=== PATIENT | female | born 1995 | race Caucasian/White ===

== ENCOUNTER 2020-03-06 15:42 | Emergency (ER) | payer BC ==
[~2020-03-06] VITALS: Ht 160 cm; Wt 135.4 kg
[2020-03-06 16:34] VITALS: BP 113/75
[2020-03-06] MEDS ORDERED: KETOROLAC 15 MG/ML VIAL. IVP ONE (16:45)
[2020-03-06] MEDS ORDERED: PROCHLORPERAZINE 10 MG/2 ML VIAL. IV ONE (16:45)
[2020-03-06] MEDS ORDERED: diphenhydrAMINE 50 MG/ML VIAL IVP ONE (16:45)
--- NOTE | 2020-03-06 16:48 | PHYS DOC ---
Past History Additional Past Medical Histor: migraines Drug Use: Marijuana General Adult EDM: Chief Complaint: HEADACHE HPI: HPI: Patient is a 24-year-old female who presents with a 1 day history of headache. Patient has a long history of migraines and this feels similar but more intense than her usual migraines. Pain is located on the right side primarily the right frontal to the right posterior scalp. Pain is worse with light. Patient had one episode of nausea and vomiting. Patient denies any fevers, cough or shortness of breath. Patient has any focal weakness or numbness. Pain is currently 7 out of 10 and throbbing in nature. Pain was gradual in onset Review of Systems: Review of Systems: Constitutional: Denies fever or chills Eyes: Denies change in visual acuity HENT: Denies nasal congestion or sore throat Respiratory: Denies cough or shortness of breath Cardiovascular: Denies chest pain or edema GI: Denies abdominal pain, nausea, vomiting, bloody stools or diarrhea : Denies dysuria Musculoskeletal: Denies back pain or joint pain Integument: Denies rash Neurologic: Denies headache, focal weakness or sensory changes Endocrine: Denies polyuria or polydipsia Lymphatic: Denies swollen glands Psychiatric: Denies depression or anxiety Physical Exam: PE: Constitutional: Well developed, well nourished, no acute distress, non-toxic appearance. [] HENT: Normocephalic, atraumatic, bilateral external ears normal, no trismus, nose normal. [] Eyes: PERRLA, EOMI, conjunctiva normal, no discharge. [] Neck: Normal range of motion, no tenderness, supple, no stridor. [] Cardiovascular:Heart rate regular rhythm, peripheral pulses are intact cap refill is brisk Lungs & Thorax: Bilateral breath sounds clear to auscultation [] Abdomen: Bowel sounds normal, soft, no tenderness, no masses, no pulsatile masses. [] Skin: Warm, dry, no erythema, no rash. [] Back: No tenderness, no CVA tenderness. [] Extremities: No tenderness, no cyanosis, no clubbing, ROM intact, no edema. [] Neurologic: Alert and oriented X 3, normal motor function, normal sensory function, no focal deficits noted. [] Psychologic: Affect normal, judgement normal, mood normal. [] Current Patient Data: Vital Signs: Vital Signs Date Time Temp Pulse Resp B/P (MAP) Pulse Ox O2 Delivery O2 Flow Rate FiO2 03/06/20 16:34 97.9 73 16 113/75 (88) 99 Room Air EKG: EKG: [] Radiology/Procedures: Radiology/Procedures: [] Heart Score: Risk Factors: Risk Factors: DM, Current or recent (<one month) smoker, HTN, HLP, family history of CAD, obesity. Risk Scores: Score 0 - 3: 2.5% MACE over next 6 weeks - Discharge Home Score 4 - 6: 20.3% MACE over next 6 weeks - Admit for Clinical Observation Score 7 - 10: 72.7% MACE over next 6 weeks - Early Invasive Strategies Course & Med Decision Making: Course & Med Decision Making Pertinent Labs and Imaging studies reviewed. (See chart for details) [] Patient reassessed at 5:38 PM and headache is gone. 26-year-old female presents with headache that is similar to her prior migraines. Patient is neurologically intact and has no meningeal signs. Doubt meningitis or subarachnoid hemorrhage. Patient stable for discharge. Patient given dose of Decadron and a prescription for Compazine for home. Patient is referral to neurology. Deborah Disclaimer: Dragon Disclaimer: This electronic medical record was generated, in whole or in part, using a voice recognition dictation system. Departure Departure: Impression: Primary Impression: Headache Disposition: ADMITTED INPT THIS HOSP Condition: LEFT WITHOUT BEING SEEN Referrals: [facility] (PCP) CARRIE BARNETT MD 2-3 days Patient Instructions: General Headache Without Cause Additional Instructions: EMERGENCY DEPARTMENT GENERAL DISCHARGE INSTRUCTIONS THANK YOU for coming to [facility] Emergency Department (ED) today and trusting us with your care. We trust that you had a positive experience in our Emergency Department. If you wish to speak to the department Management you can contact the emergency department at YOUR FOLLOW UP INSTRUCTIONS ARE FOLLOWS: Do you have a private doctor? If you do not have a private doctor, please ask fo r a resource list of physicians or clinics that may be able to assist you with follow up care. The Emergency Physician has interpreted your x-rays. The X-ray specialist will also review them. If there is a change in the findings you will be notified in 48 hours when at all possible. A lab test or lab culture may have been done, your results will be reviewed and you will be notified if you need a change in treatment. ADDITIONAL INSTRUCTIONS AND INFORMATION Your care today has been supervised by a physician who is specially trained in emergency care. Many problems require more than one evaluation for a complete diagnosis and treatment. We recommend that you schedule your follow up appointment as recommended to ensure complete treatment of your illness or injury. If you are unable to obtain follow up care and continue to have a problem, or if your condition worsens we recommend that you return to the ED. We are not able to safely determine your condition over the phone nor are we able to give sound medical advice over the phone. For these safety reasons, if you call for medical advice we will ask you to come to the ED for further evaluation If you have any questions regarding these discharge instructions please call the ED at . SAFETY INFORMATION In the interest of safety, wellness, and injury prevention; we encourage you to wear your seatbelt, if you smoke; quit smoking, and we encourage your family to use protective helmet for bicycling and other sporting events that present an increased risk for head injury. IF YOUR SYMPTOMS WORSEN OR NEW SYMPTOMS DEVELOP, OR YOU HAVE CONCERNS ABOUT YOUR CONDITION; OR IF YOUR CONDITION WORSENS WHILE YOU ARE WAITING FOR YOUR FOLLOW UP APPOINTMENT; EITHER CONTACT YOUR PRIMARY CARE DOCTOR, THE PHYSICIAN WHOSE NAME AND NUMBER YOU WERE GIVEN, OR RETURN TO THE ED IMMEDIATELY. Scripts Prochlorperazine Maleate (Compazine) 10 Mg Tablet 1 TAB PO Q6HRS for headache/nausea for 7 Days, #28 TAB 0 Refills Prov: DORYS JOHNSON MD 03/06/20 DORYS JOHNSON MD Mar 06, 2020 16:47
[2020-03-06] MEDS ORDERED: PROC10TA57 PO (17:43)
[2020-03-06] MEDS ORDERED: DEXAMETHASONE SOD PHOS 10 MG/ML VIAL. IV ONE (17:43)
== END 2020-03-06 17:59 | disposition admitted as inpatient to this hospital (09) ==
LOC: ER 15:42
DX: G43.909 Migraine, unspecified, not intractable, without status migrainosus (principal); R11.2 Nausea with vomiting, unspecified
CPT/HCPCS: 96374; 96375; 99284; J0780; J1100; J1200; J1885

== ENCOUNTER 2020-08-28 11:08 | Emergency (ER) | payer BC ==
[~2020-08-28] VITALS: Ht 160 cm; Wt 139.5 kg
[~2020-08-28 11:08] MED LIST: PROC10TA57 PO
[2020-08-28] MEDS ORDERED: IV NORMAL SALINE 1,000ML 1,000 ML IV ONE (11:30)
[2020-08-28] MEDS ORDERED: ONDANSETRON PF 4 MG/2 ML VIAL. IVP ONE (11:30)
[2020-08-28] MEDS ORDERED: KETOROLAC 15 MG/ML VIAL. IVP ONE (11:30)
[2020-08-28 12:09] LABS: BASO % 1 % (0-3); EOS # 0.1 x10^3/uL (0.0-0.7); EOS % 2 % (0-3); HEMATOCRIT 39.2 % (36.0-47.0); HEMOGLOBIN 12.9 g/dL (12.0-15.5); LYMPH # 1.8 x10^3/uL (1.0-4.8); LYMPH % 36 % (24-48); MEAN CORPUSCULAR HEMOGLOBIN 28 pg (25-35); MEAN CORPUSCULAR HGB CONC 33 g/dL (31-37); MEAN CORPUSCULAR VOLUME 84 fL (79-100); MONO # 0.4 x10^3/uL (0.0-1.1); MONO % 8 % (0-9); NEUT # 2.8 x10^3uL (1.8-7.7); NEUT % 54 % (31-73); PLATELET COUNT 240 x10^3/uL (140-400); RED BLOOD COUNT 4.66 x10^6/uL (3.50-5.40); RED CELL DISTRIBUTION WIDTH 13.2 % (11.5-14.5); WHITE BLOOD COUNT 5.2 x10^3/uL (4.0-11.0)
--- NOTE | 2020-08-28 12:13 | RAD ---
INDICATION: Reason: dizziness/headache / Spl. Instructions: / History: COMPARISON: None. TECHNIQUE: Axial CT images obtained through the head without intravenous contrast. One or more of the following individualized dose reduction techniques were utilized for this examinat ion: 1. Automated exposure control; 2. Adjustment of the mA and/or kV according to patient size; 3 . Use of iterative reconstruction technique. FINDINGS: No intracranial hemorrhage. No midline shift. Basal cisterns patent. Ventricles and sulci are unremarkable. No acute osseous abnormality. Orbits and paranasal sinuses unremarkable. IMPRESSION: * No acute intracranial hemorrhage. Electronically signed by: Jitendra Muniz MD (08/28/2020 12:11 PM) [id number]
[2020-08-28 12:27] LABS: BILIRUBIN,URINE NEG (NEG); CALCIUM 9.1 mg/dL (8.5-10.1); CLARITY,URINE CLEAR; COLOR,URINE YELLOW; CREATININE 0.5 mg/dL (0.6-1.0); GLUCOSE,URINE NEG (NEG); NITRITE,URINE NEG (NEG); UROBILINOGEN,URINE 0.2 mg/dL (0.2 mg/dL)
[2020-08-28 12:29] LABS: BACTERIA,URINE 0 /HPF (0-FEW); RBC,URINE 0 /HPF (0-2); SQUAMOUS EPITHELIAL CELL,UR OCC /LPF; WBC,URINE 0 /HPF (0-4)
[2020-08-28 12:34] LABS: ALBUMIN 3.8 g/dL (3.4-5.0); ALBUMIN/GLOBULIN RATIO 1.2 (1.0-1.7); MAGNESIUM 2.2 mg/dL (1.8-2.4); TOTAL BILIRUBIN 0.3 mg/dL (0.2-1.0)
--- NOTE | 2020-08-28 12:41 | PHYS DOC ---
Past History Past Medical History: No Pertinent History, Migraines Additional Past Medical Histor: migraines Past Surgical History: , Tonsillectomy Alcohol Use: None Drug Use: Marijuana General Adult EDM: Chief Complaint: DIZZY/LIGHT HEADED HPI: HPI: Patient is a [age] year old [sex] who presents with [] Review of Systems: Review of Systems: Constitutional: Denies fever or chills Eyes: Denies redness or eye pain HENT: Denies nasal congestion or sore throat Respiratory: Denies cough or shortness of breath Cardiovascular: Denies chest pain or palpitations GI: Denies abdominal pain, nausea, or vomiting : Denies dysuria or hematuria Musculoskeletal: Denies back pain or joint pain Integument: Denies rash or skin lesions Neurologic: Denies headache, focal weakness or sensory changes Complete systems were reviewed and found to be within normal limits, except as documented in this note. Current Medications: Current Meds: Current Medications Medications (Trade) Dose Ordered Sig/Arin Start Time Stop Time Status Last Admin Dose Admin Ketorolac Tromethamine (Toradol 15mg Vial) 15 mg 1X ONCE 08/28/20 11:30 08/28/20 11:31 DC 08/28/20 11:50 15 MG Ondansetron HCl (Zofran) 4 mg 1X ONCE 08/28/20 11:30 08/28/20 11:31 DC 08/28/20 11:51 4 MG Sodium Chloride 1,000 ml @ 1,000 mls/hr 1X ONCE 08/28/20 11:30 08/28/20 12:29 DC 08/28/20 11:51 1,000 MLS/HR Allergies: Allergies: Allergies Coded Allergies Type Severity Reaction Last Updated Verified No Known Drug Allergies 03/06/20 No Physical Exam: PE: Constitutional: Well developed, well nourished, no acute distress, non-toxic appearance HENT: Normocephalic, atraumatic Eyes: PERRL, EOMI, conjunctiva normal, no discharge Neck: Normal range of motion, no tenderness, supple Lungs & Thorax: No respiratory distress, equal chest rise and fall Abdomen: Soft, no tenderness Skin: Warm, dry, no erythema, no rash Back: No tenderness, no CVA tenderness Extremities: No tenderness, ROM intact, no edema Neurologic: Alert and oriented X 3, normal motor function, normal sensory function, no focal deficits noted Psychologic: Affect normal, judgment normal Current Patient Data: Labs: Laboratory Tests Test 08/28/20 11:48 White Blood Count 5.2 x10^3/uL (4.0-11.0) Red Blood Count 4.66 x10^6/uL (3.50-5.40) Hemoglobin 12.9 g/dL (12.0-15.5) Hematocrit 39.2 % (36.0-47.0) Mean Corpuscular Volume 84 fL (79-100) Mean Corpuscular Hemoglobin 28 pg (25-35) Mean Corpuscular Hemoglobin Concent 33 g/dL (31-37) Red Cell Distribution Width 13.2 % (11.5-14.5) Platelet Count 240 x10^3/uL (140-400) Neutrophils (%) (Auto) 54 % (31-73) Lymphocytes (%) (Auto) 36 % (24-48) Monocytes (%) (Auto) 8 % (0-9) Eosinophils (%) (Auto) 2 % (0-3) Basophils (%) (Auto) 1 % (0-3) Neutrophils # (Auto) 2.8 x10^3uL (1.8-7.7) Lymphocytes # (Auto) 1.8 x10^3/uL (1.0-4.8) Monocytes # (Auto) 0.4 x10^3/uL (0.0-1.1) Eosinophils # (Auto) 0.1 x10^3/uL (0.0-0.7) Basophils # (Auto) 0.0 x10^3/uL (0.0-0.2) Urine Collection Type Unknown Urine Color Yellow Urine Clarity Clear Urine pH 7.5 Urine Specific [place] 1.020 Urine Protein Neg (NEG-TRACE) Urine Glucose (UA) Neg mg/dL (NEG) Urine Ketones (Stick) Neg mg/dL (NEG) Urine Blood Neg (NEG) Urine Nitrite Neg (NEG) Urine Bilirubin Neg (NEG) Urine Urobilinogen Dipstick 0.2 mg/dL (0.2 mg/dL) Urine Leukocyte Esterase Neg (NEG) Urine RBC 0 /HPF (0-2) Urine WBC 0 /HPF (0-4) Urine Squamous Epithelial Cells Occ /LPF Urine Bacteria 0 /HPF (0-FEW) Sodium Level 140 mmol/L (136-145) Potassium Level 5.5 mmol/L (3.5-5.1) H Chloride Level 104 mmol/L (98-107) Carbon Dioxide Level 25 mmol/L (21-32) Anion Gap 11 (6-14) Blood Urea Nitrogen 12 mg/dL (7-20) Creatinine 0.5 mg/dL (0.6-1.0) L Estimated GFR (Cockcroft-Gault) 148.0 BUN/Creatinine Ratio 24 (6-20) H Glucose Level 94 mg/dL (70-99) Calcium Level 9.1 mg/dL (8.5-10.1) Magnesium Level 2.2 mg/dL (1.8-2.4) Total Bilirubin 0.3 mg/dL (0.2-1.0) Aspartate Amino Transferase (AST) 29 U/L (15-37) Alanine Aminotransferase (ALT) 33 U/L (14-59) Alkaline Phosphatase 56 U/L (46-116) Troponin I Quantitative < 0.017 ng/mL (0-0.055) Total Protein 7.0 g/dL (6.4-8.2) Albumin 3.8 g/dL (3.4-5.0) Albumin/Globulin Ratio 1.2 (1.0-1.7) Vital Signs: Vital Signs Date Time Temp Pulse Resp B/P (MAP) Pulse Ox O2 Delivery O2 Flow Rate FiO2 08/28/20 12:30 68 16 136/77 (96) Room Air 08/28/20 11:22 97.9 98 EKG: EKG: @1134 NSR at 69bpm, NO ST elevation, QRS 88ms, QT/QTc 408/439ms, t wave inve rsion III Radiology/Procedures: Radiology/Procedures: PROCEDURE: CT HEAD WO CONTRAST INDICATION: Reason: dizziness/headache / Spl. Instructions: / History: COMPARISON: None. TECHNIQUE: Axial CT images obtained through the head without intravenous contrast. One or more of the following individualized dose reduction techniques were utilized for this examination: 1. Automated exposure control; 2. Adjustment of the mA and/or kV according to patient size; 3. Use of iterative reconstruction technique. FINDINGS: No intracranial hemorrhage. No midline shift. Basal cisterns patent. Ventricles and sulci are unremarkable. No acute osseous abnormality. Orbits and paranasal sinuses unremarkable. IMPRESSION: * No acute intracranial hemorrhage. Electronically signed by: Jitendra Muniz MD (08/28/2020 12:11 PM) DESKTOP- [id number] Heart Score: C/O Chest Pain: N/A Course & Med Decision Making: Course & Med Decision Making Pertinent Labs and Imaging studies reviewed. (See chart for details) Patient stable for discharge with outpatient follow-up with PCP. Discussed findings and plan with patient, who acknowledges understanding and agreement. Dragon Disclaimer: Dragon Disclaimer: This electronic medical record was generated, in whole or in part, using a voice recognition dictation system. Departure Departure: Impression: Primary Impression: Near syncope Disposition: 01 HOME / SELF CARE / HOMELESS Condition: STABLE Referrals: EV OBRIEN (PCP) Patient Instructions: Near-Syncope, [id number], Recurrent Migraine Headache, [id number] Additional Instructions: Increase fluid hydration. Take medication for headaches as directed. Follow with your previously scheduled appointment to see neurology. NANCY BARNEY DO August 28, 2020 12:41
[2020-08-28 13:30] VITALS: BP 137/65
--- NOTE | 2020-08-28 13:54 | EKG ---
[address] [address] Test Date: 2020-08-28 Test Time: 11:34:05 Pat Name: CHICO SORENSEN Department: Room: Gender: F Guest Service Agent: MELVIN : 1995 Requested By: NANCY BARNEY Order Number: [id number] Reading MD: Measurements Intervals [place] Rate: 69 P: 36 MS: 164 QRS: -23 QRSD: 88 T: -4 QT: 408 QTc: 439 Interpretive Statements SINUS RHYTHM LEFTWARD AXIS R-S TRANSITION ZONE IN V LEADS DISPLACED TO THE LEFT T ABNORMALITY IN INFERIOR LEADS ABNORMAL ECG RI6.02 No previous ECG available for comparison
[2020-08-28 13:58] LABS: POTASSIUM 5.5 mmol/L (3.5-5.1)
== END 2020-08-28 14:08 | disposition home or self-care (01) ==
LOC: ER 11:08
DX: R55 Syncope and collapse (principal); R42 Dizziness and giddiness; R11.0 Nausea; G43.909 Migraine, unspecified, not intractable, without status migrainosus
CPT/HCPCS: 36415; 70450; 80053; 81001; 83735; 84132; 84484; 85025; 93005; 96361; 96374; 96375; 99285; J1885; J2405; J7030